=== PATIENT | male | born 1935 | race Caucasian/White ===

== ENCOUNTER 2017-11-20 09:00 | Outpatient (CLI) | payer MEDICARE ==
[2017-11-20 10:11] LABS: Hemoglobin 13.3 g/dL (14.0-18.0); Mean Corpuscular HGB CONC 33.5 g/dL (32.0-36.0); Mean Corpuscular Hemoglobin 31.7 pg (27.0-31.0); Mean Corpuscular Volume 94.6 fL (78.0-98.0); Mean Platelet Volume 6.7 fL (7.4-10.4); Platelet Count 245 thou/uL (130-400); RBC Distribution Width 12.2 % (11.5-14.5); Red Blood Cell (RBC) Count 4.19 mill/uL (4.70-6.10); White Blood Cell (WBC) Count 6.9 thou/uL (4.8-10.8)
[2017-11-20 10:17] LABS: PTT 30.9 SEC (22.9-36.1); Prothrombin Time 12.8 SEC (12.0-14.7)
[2017-11-20 10:23] LABS: Anion Gap 10 mmol/L (10-20); BUN (Urea Nitrogen) 27 mg/dL (8.4-25.7); Calc. Creatinine Clearance 0 mL/min (70-130); Calcium 9.2 mg/dL (7.8-10.44); Carbon Dioxide 26 mmol/L (23-31); Chloride 106 mmol/L (98-107); Estimated GFR-MDRD 72; Glucose 177 mg/dL (83-110); Potassium 4.3 mmol/L (3.5-5.1); Sodium 138 mmol/L (136-145)
--- NOTE | 2017-11-20 17:13 | EKG ---
Test Reason : Blood Pressure : / mmHG Vent. Rate : 057 BPM Atrial Rate : 057 BPM P-R Int : 214 ms QRS Dur : 126 ms QT Int : 438 ms P-R-T Axes : 027 117 027 degrees QTc Int : 426 ms Sinus bradycardia with sinus arrhythmia with 1st degree A-V block Right axis deviation Non-specific intra-ventricular conduction block cannot R/O anterior infarct Abnormal ECG Confirmed by DR. Daniel ABREU (3) on 11/20/2017 5:13:38 PM Referred By: KAMARI Confirmed By:DR. Daniel ABREU
== END 2017-11-20 09:01 | disposition home or self-care (01) ==
LOC: LABBT 09:00
PROVIDERS: ATTEND Urology
DX: Z01.818 Encounter for other preprocedural examination (principal); N35.9 Urethral stricture, unspecified
CPT/HCPCS: 80048; 85027; 85610; 85730; 93005; 93010

== ENCOUNTER 2017-11-23 06:56 | Day surgery (SDC) | payer MEDICARE ==
[2017-11-20 09:44] VITALS: BMI 26.4
[2017-11-23] MEDS ORDERED: CEFAZOLIN/Water 2 GM/20 ML SYRINGE ONE (07:24)
[2017-11-23] MEDS ORDERED: Fentanyl 100 MCG/2 ML VIAL ONE (10:02)
--- NOTE | 2017-11-23 13:29 | OP ---
DATE OF PROCEDURE: 11/23/2017 PREOPERATIVE DIAGNOSIS: Recurrent urethral stricture disease, status post urethroplasty in the dista nt past. PROCEDURE PERFORMED: Cystoscopy, urethral dilatation. SURGEON: Dr. Didier Davila. ANESTHETIC: General. ESTIMATED BLOOD LOSS: Not recorded. DRAINS PLACED: An 18-Tristanian Longview-tip catheter. FINDINGS: He had some diffuse strictures of his [place] urethra, both distal and proximal to the area of the urethroplasty. The urethroplasty was narrowed. The bladder was free of tumor, foreign body, or stone. There were 2 ureteral orifices in normal position. There was an enlarged prostate gland. OPERATIVE TECHNIQUE: Obtained written and verbal consent from the patient. After receiving IV antib iotics, he was taken to the operating suite. He was placed in a supine position on the treatment tab le. PlexiPulses placed on the lower extremities and turned on. He was given a general anesthetic, o ral obturator intubation. He was placed in dorsal lithotomy position, sterilely prepped and draped. Cystoscopy was performed with a 17-Tristanian sheath. It was passed down gently dilating some of the an nular strictures distal to the urethroplasty. Guidewire was then fed across this. When we brought i n the laser, we could not get the laser to work well to cut through this, so we just worked gently th rough with the 17-Tristanian sheath and then examined the bladder at 30- and 70-degrees lens. Then, we j ust went ahead with a 20-Tristanian and then 22-Tristanian by backloading the guidewire through each of the s ida. All of this done under direct vision. At this point, the guidewire was left in place and the Longview tip catheter was fed over it without difficulty into the bladder, 20 mL placed in the balloo n. His drain was hooked up to drainage bag and he was taken out of the dorsal lithotomy position, aw akened, extubated, and taken by stretcher to the recovery room.
[2017-11-23] MEDS ORDERED: Ondansetron HCl/PF 4 MG/2 ML Vial ONE (15:00)
[2017-11-23] MEDS ORDERED: Lidocaine 1% PF 5 ML VIAL ONE (15:00)
[2017-11-23] MEDS ORDERED: PROPOFOL 200 MG/20 ML VIAL ONE (15:00)
[2017-11-23] MEDS ORDERED: Dexamethasone 20 MG/5 ML VIAL ONE (15:00)
== END 2017-11-23 12:34 | disposition home or self-care (01) ==
LOC: SDC 06:56
PROVIDERS: ATTEND Urology
PROC: 0T7D8ZZ Dilation of Urethra, Via Natural or Artificial Opening Endoscopic (ICD-10-PCS; principal; 2017-11-23)
DX: N35.9 Urethral stricture, unspecified (principal); I25.10 Atherosclerotic heart disease of native coronary artery without angina pectoris; I10 Essential (primary) hypertension; E11.9 Type 2 diabetes mellitus without complications; Z79.4 Long term (current) use of insulin; Z79.899 Other long term (current) drug therapy
CPT/HCPCS: 52281; C1758; J1100; J2001; J2405; J2704; J3010

== ENCOUNTER 2018-10-28 01:42 | Outpatient (CLI) | payer MEDICARE ==
[2018-10-28 12:27] LABS: Hemoglobin 13.3 g/dL (14.0-18.0); Mean Corpuscular HGB CONC 32.5 g/dL (32.0-36.0); Mean Corpuscular Volume 95.7 fL (78.0-98.0); Mean Platelet Volume 6.7 fL (7.4-10.4); Platelet Count 239 thou/uL (130-400); White Blood Cell (WBC) Count 7.7 thou/uL (4.8-10.8)
[2018-10-28 12:37] LABS: PTT 35.4 SEC (22.9-36.1)
[2018-10-28 12:47] LABS: Anion Gap 9 mmol/L (10-20); BUN (Urea Nitrogen) 29 mg/dL (8.4-25.7); Calc. Creatinine Clearance 0 mL/min (70-130); Carbon Dioxide 28 mmol/L (23-31); Chloride 105 mmol/L (98-107); Estimated GFR-MDRD 60; Glucose 120 mg/dL (83-110); Potassium 4.8 mmol/L (3.5-5.1); Sodium 137 mmol/L (136-145)
== END 2018-10-28 01:43 | disposition home or self-care (01) ==
LOC: LABBT 01:42
PROVIDERS: ATTEND Surgery
DX: Z01.812 Encounter for preprocedural laboratory examination (principal); M48.061 Spinal stenosis, lumbar region without neurogenic claudication; M54.16 Radiculopathy, lumbar region
CPT/HCPCS: 80048; 85027; 85610; 85730

== ENCOUNTER 2018-11-04 06:09 | Day surgery (SDC) | payer MEDICARE ==
[2018-11-04] MEDS ORDERED: HYDROmorphone 2 MG/ML VIAL SLOW IVP PRN (10:49)
[2018-11-04] MEDS ORDERED: Promethazine HCl 25 MG/ML VIAL IM PRN (10:49)
[2018-11-04] MEDS ORDERED: PACU-Morphine 4MG/ML VIAL SLOW IVP PRN (10:49)
[2018-11-04] MEDS ORDERED: Meperidine HCl/PF 25 MG/ML VIAL SLOW IVP PRN (10:49)
[2018-11-04] MEDS ORDERED: Ondansetron HCl/PF 4 MG/2 ML Vial IVP PRN (10:49)
[2018-11-04] MEDS ORDERED: Promethazine HCl 25 MG/ML VIAL SLOW IVP PRN (10:49)
[2018-11-04] MEDS ORDERED: Morphine Sulfate 2 MG/ML SYRINGE SLOW IVP PRN (10:49)
[2018-11-04] MEDS ORDERED: Milk Of Magnesia 30 ML UDCUP PO PRN (11:41)
[2018-11-04] MEDS ORDERED: Fleet Enema 133 ML BOT PR PRN (11:41)
[2018-11-04] MEDS ORDERED: Bisacodyl 10 MG SUPP PR PRN (11:41)
[2018-11-04] MEDS ORDERED: Acetaminophen 325 MG TAB PO PRN (11:41)
[2018-11-04] MEDS ORDERED: traMADol HCl 50 MG TAB PO PRN (11:41)
[2018-11-04] MEDS ORDERED: Promethazine HCl 25 MG/ML VIAL IM/IV PRN (11:41)
[2018-11-04] MEDS ORDERED: Morphine 2 MG/ML SYRINGE SLOW IVP PRN (11:41)
[2018-11-04] MEDS ORDERED: Mag-Al 1200 mg/1200 mg/30 ML UDCUP PO PRN (11:41)
[2018-11-04] MEDS ORDERED: tiZANidine HCl 4 MG TAB PO PRN (11:44)
[2018-11-04] MEDS ORDERED: Fentanyl 100 MCG/2 ML VIAL ONE (11:51)
--- NOTE | 2018-11-04 12:41 | OP ---
DATE OF PROCEDURE: 11/04/2018 LOCATION: OR 11. BLOCKERS SKIVER: Mor. PREPROCEDURE DIAGNOSES: Multilevel lumbar stenosis with low back and leg pain, and history of prior lumbar surgery. POSTPROCEDURE DIAGNOSES: Multilevel lumbar stenosis with low back and leg pain, and history of prior lumbar surgery. PROCEDURES PERFORMED: 1. L2-L3, L3-L4 laminectomies, partial facetectomies, foraminotomies over the L2, L3, L4 nerve roots. 2. Bilateral revision hemilaminotomies, L4-L5, L5-S1 for decompression of the L4-L5, L5-S1 nerve roots and cauda equina. DESCRIPTION OF PROCEDURE: After informed consent was obtained from the patient, the patient was brought to the OR. Proper patient, pause, and identification were carried out. He was placed under excellent general endotracheal anesthesia and positioned prone on the OR table. All appropriate points were padded. I identified the L2, L3, L4, L5, and S1 dorsal spines and lamina. A linear jorge was made over this area, and this region was sterilely cleansed, prepared, and draped. Proper patient, pause, and identification were carried out. The wound was then opened with a combination of sharp, monopolar, and blunt dissection. The L2, L3, L4, L5, and S1 dorsal spines and lamina were removed along with bilateral revision of L4-L5 and L5-S1 hemilaminotomies and decompressions. A modifier 50 should be added to this surgery as this was a bilateral surgery. With excellent decompression of the common dural tube and the L2 through S1 nerve roots and the thecal sac, there was no spinal fluid leak. Copious irrigation occurred throughout. Hemostasis was a bit challenging at times as the patient had remained on his aspirin for cardiac protection. However, copious irrigation and maximization of hemostasis were performed. The wound was then closed in anatomic layers following sprinkling of vancomycin powder. The patient emerged from anesthesia. Job ID: [id number]
[2018-11-04] MEDS: HYDROcodone/Acetaminophen 10/325 mg Tablet PO PRN ×2 (13:31→21:28)
[2018-11-04] MEDS: Sodium Chloride 0.9% 1,000 ML IV SCH ×2 (13:45→15:00)
[2018-11-04 13:57] VITALS: BMI 26.4
[2018-11-04] MEDS: CEFAZOLIN 2 GM in Premix Bag 1 BAG IVPB SCH ×2 (15:02→23:40)
[2018-11-04] MEDS: Gabapentin 300 MG CAP PO SCH ×2 (15:02→21:23)
[2018-11-04] MEDS: Acetaminophen/Codeine 30-300mg Tablet PO PRN ×2 (15:43→18:45)
[2018-11-04] MEDS ORDERED: PROPOFOL 200 MG/20 ML VIAL ONE (16:25)
[2018-11-04] MEDS ORDERED: PHENYLEPHRINE-NS 100 MCG/ML 10 ML SYRINGE ONE (16:26)
[2018-11-04] MEDS ORDERED: ePHEDrine 50 MG/ML VIAL ONE (16:26)
[2018-11-04] MEDS ORDERED: Lidocaine 1% PF 5 ML VIAL ONE (16:26)
[2018-11-04] MEDS ORDERED: Metoclopramide HCl 10 MG/2 ML VIAL ONE (16:26)
[2018-11-04] MEDS ORDERED: Ondansetron PF 4 MG/2 ML Vial ONE (16:26)
[2018-11-04] MEDS ORDERED: Rocuronium Bromide 10 MG/ML (10ML VIAL) ONE (16:26)
[2018-11-04] MEDS ORDERED: Glycopyrrolate 0.2 MG/ML 5 ML SYRINGE ONE (16:26)
[2018-11-04] MEDS ORDERED: HumaLOG 300 UNITS/3 ML VIAL SC PRN (18:08)
[2018-11-04] MEDS ORDERED: Dextrose 5% in Water 1,000 ML IV PRN (18:08)
[2018-11-04] MEDS ORDERED: Dextrose 50% Abboject 50 ML SYRINGE SLOW IVP PRN (18:08)
[2018-11-04] MEDS ORDERED: cloNIDine 0.1 MG TAB PO PRN (18:22)
[2018-11-04] MEDS ORDERED: Acetaminophen 500 MG TAB PO PRN (18:22)
[2018-11-04] MEDS ORDERED: Sodium Chloride 0.65% Nasal 44 ML BOT EA NARE PRN (18:22)
[2018-11-04] MEDS ORDERED: Ondansetron PF 4 MG/2 ML Vial IVP PRN (18:22)
[2018-11-04] MEDS ORDERED: Benzonatate 100 MG CAP PO PRN (18:22)
[2018-11-04] MEDS ORDERED: Senokot S 8.6-50 MG TAB PO PRN (18:22)
[2018-11-04] MEDS ORDERED: Diabetic Tussin 200 MG/10 ML UDCUP PO PRN (18:22)
[2018-11-04] MEDS ORDERED: hydrALAZINE 20 MG/ML VIAL SLOW IVP PRN (18:22)
[2018-11-04] MEDS ORDERED: Loratadine 10 MG TAB PO PRN (18:22)
[2018-11-04] MEDS ORDERED: Calcium Carbonate 500 MG ChewTAB PO PRN (18:22)
--- NOTE | 2018-11-04 18:22 | PDOC.PN ---
- Subjective Encounter Start Date: 11/04/18 Encounter Start Time: 18:22 Subjective: S/P Lumbosacral laminectomy by NS. -: IM team consulted for medical Mm of HTN,DM2 - Objective MAR Reviewed: Yes Vital Signs & Weight: Vital Signs (12 hours) Temp Pulse Resp BP Pulse Ox 11/04/18 15:15 98.1 F 50 L 18 117/53 L 96 11/04/18 13:10 97.8 F 52 L 18 134/58 L 96 Weight Weight 190 lb I&O: 11/03/18 11/04/18 11/05/18 06:59 06:59 06:59 Intake Total 1400 Balance 1400 Additional Labs: Accuchecks 11/04/18 17:46 POC Glucose 179 H Phys Exam - Physical Examination Constitutional: NAD HEENT: PERRLA, moist MMs, sclera anicteric, oral pharynx no lesions Neck: no nodes, no JVD, supple, full ROM Respiratory: no wheezing, no rales, no rhonchi, clear to auscultation bilateral Cardiovascular: RRR, no significant murmur Gastrointestinal: soft, non-tender, no distention, positive bowel sounds Musculoskeletal: no edema, pulses present Neurological: non-focal, normal sensation, moves all 4 limbs Psychiatric: normal affect, A&O x 3 Skin: no rash Dx/Plan (1) DM2 (diabetes mellitus, type 2) Status: Chronic Comment: cont lantus.Add ISS w accuchecks ACHS. (2) HTN (hypertension) Code(s): I10 - ESSENTIAL (PRIMARY) HYPERTENSION Status: Chronic Comment: controlled. cont home dose of Lisinopril.BP on lower side.Monitor Add prn antihypertensives (3) CAD (coronary artery disease) Code(s): I25.10 - ATHSCL HEART DISEASE OF [place] CORONARY ARTERY W/O ANG PCTRS Status: Chronic Comment: stable. Cont lipitor,MIMI-I.no ASA due to spinal Sx today (4) BPH (benign prostatic hyperplasia) Code(s): N40.0 - BENIGN PROSTATIC HYPERPLASIA WITHOUT LOWER URINRY TRACT SYMP Status: Chronic Comment: cont proscar. No new symptoms (5) S/P laminectomy Code(s): Z98.890 - OTHER SPECIFIED POSTPROCEDURAL STATES Status: Acute Comment: As per primary team - Plan PT/OT, DVT proph w/SCDs SCDs -: AM labs -: HD stable -: IM team will follow. cont symptomatic & supportive care * . Review of Systems - Review of Systems Constitutional: negative: fever, chills, sweats, weakness, malaise, other ENT: negative: Ear Pain, Ear Discharge, Nose Pain, Nose Discharge, Nose Congestion, Mouth Pain, Mouth Swelling, Throat Pain, Throat Swelling, Other Respiratory: negative: Cough, Dry, Shortness of Breath, Hemoptysis, SOB with Excertion, Pleuritic Pain, Sputum, Wheezing Cardiovascular: negative: chest pain, palpitations, orthopnea, paroxysmal nocturnal dyspnea, edema, light headedness, other Gastrointestinal: negative: Nausea, Vomiting, Abdominal Pain, Diarrhea, Constipation, Melena, Hematochezia, Other Genitourinary: negative: Dysuria, Frequency, Incontinence, Hematuria, Retention , Other Musculoskeletal: negative: Neck Pain, Shoulder Pain, Arm Pain, Back Pain, Hand Pain, Leg Pain, Foot Pain, Other Neurological: negative: Weakness, Numbness, Incoordination, Change in Speech, Confusion, Seizures, Other - Medications/Allergies Allergies/Adverse Reactions: Allergies Allergy/AdvReac Type Severity Reaction Status Date / Time No Known Allergies Allergy Verified 11/04/18 13:57 Medications: Current Medications Acetaminophen (Tylenol) 650 mg PO Q4H PRN PRN Reason: Headache/Fever or Pain Acetaminophen/Codeine Phosphate (Tylenol #3) 1 tab PO Q3H PRN PRN Reason: Mild Pain (1-3) Last Admin: 11/04/18 15:43 Dose: 1 tab Hydrocodone Bitart/Acetaminophen ([place]ler 10/325) 1 tab PO Q8H PRN PRN Reason: Moderate Pain (4-6) Last Admin: 11/04/18 13:31 Dose: 1 tab Al Hydroxide/Mg Hydroxide (Maalox) 30 ml PO Q4H PRN PRN Reason: Indigestion Atorvastatin Calcium (Lipitor) 40 mg PO HS ZOILA Bisacodyl (Dulcolax) 10 mg WA Q12H PRN PRN Reason: Constipation Dextrose/Water (Dextrose 50%) 25 gm SLOW IVP PRN PRN PRN Reason: Hypoglycemia Finasteride (Proscar) 5 mg PO QAM ZOILA Gabapentin (Neurontin) 600 mg PO Q8HR ZOILA Last Admin: 11/04/18 15:02 Dose: 600 mg Glucagon (Glucagon) 1 mg IM PRN PRN PRN Reason: Hypoglycemia Cefazolin Sodium/Dextrose 2 gm (/ Device) 50 mls @ 100 mls/hr IVPB 0800,1600, 2359 [facility] Stop: 11/05/18 00:28 Last Admin: 11/04/18 15:02 Dose: 50 mls Sodium Chloride (Normal Saline 0.9%) 1,000 mls @ 50 mls/hr IV .Q20H [facility] Last Admin: 11/04/18 15:00 Dose: 1,000 mls Insulin Glargine 15 units/ (Miscellaneous Medication) 0.15 mls @ 0 mls/hr SC QAM ZOILA Insulin Glargine 25 units/ (Miscellaneous Medication) 0.25 mls @ 0 mls/hr SC HS [facility] Dextrose/Water (D5w) 1,000 mls @ 0 mls/hr IV .Q0M PRN PRN Reason: Hypoglycemia Insulin Human Lispro (Humalog) 0 units SC .MODERATE SLIDING SC PRN PRN Reason: Moderate Correctional Scale Insulin Human Lispro (Humalog) 0 units SC .BEDTIME SLIDING SC PRN PRN Reason: Bedtime Correctional Scale Lactulose (Lactulose) [id number] gm PO DAILY [facility] Lisinopril (Zestril) 5 mg PO HS [facility] Magnesium Hydroxide (Milk Of Magnesium) 30 ml PO Q12H PRN PRN Reason: Constipation Morphine Sulfate (Morphine) 2 mg SLOW IVP Q1H PRN PRN Reason: Severe Pain (7-10) Promethazine HCl (Phenergan) 12.5 mg IM/IV Q4H PRN PRN Reason: Nausea/Vomiting Sodium Biphosphate/Sodium Phosphate (Fleet Enema) 133 ml WA ONE PRN PRN Reason: Constipation Stop: 11/04/18 23:00 Sodium Chloride (Flush - Normal Saline) 10 ml IVF PRN PRN PRN Reason: Saline Flush Tizanidine HCl (Zanaflex) 4 mg PO Q8H PRN PRN Reason: Muscle Spasm Tramadol HCl (Ultram) 50 mg PO Q6H PRN PRN Reason: Mild Pain (1-3)
[2018-11-04] MEDS: HumaLOG 300 UNITS/3 ML VIAL SC PRN (18:41)
[2018-11-04] MEDS ORDERED: Insulin Glargine 25 UNITS in Pre-Filled Syringe 1 EACH SC SCH (21:00)
[2018-11-04] MEDS ORDERED: Non-Formulary Item 1 EACH (Insulin Detemir 100 Units/Ml [Levemir] 25 UNIT) SQ SCH (21:00)
[2018-11-04] MEDS ORDERED: Atorvastatin Calcium 40 MG TAB PO SCH (21:00)
[2018-11-04] MEDS ORDERED: Lisinopril 5 MG TAB PO SCH (21:00)
[2018-11-04] MEDS ORDERED: Insulin Glargine 20 UNITS in Pre-Filled Syringe 1 EACH SC SCH (22:15)
[2018-11-04] MEDS ORDERED: HYDROcodone/Acetaminophen 5/325 mg Tablet PO SCH (22:30)
[2018-11-05 04:43] LABS: #Basophils 0.1 thou/uL (0.0-0.2); #Eosinphils 0.1 thou/uL (0.0-0.7); #Lymphocytes 2.2 thou/uL (1.20-3.40); #Monocytes 0.9 thou/uL (0.11-0.59); #Neutrophils 6.4 thou/uL (1.40-6.50); %Basophils 0.6 % (0.0-1.0); %Eosinophils 0.6 % (0.0-10.0); %Monocytes 9.2 % (0.0-10.0); %Neutrophils 66.5 % (42.0-75.0); Hemoglobin 10.4 g/dL (14.0-18.0); Mean Corpuscular Hemoglobin 31.7 pg (27.0-31.0); Mean Corpuscular Volume 96.2 fL (78.0-98.0); Platelet Count 216 thou/uL (130-400); RBC Distribution Width 11.7 % (11.5-14.5); Red Blood Cell (RBC) Count 3.29 mill/uL (4.70-6.10); White Blood Cell (WBC) Count 9.6 thou/uL (4.8-10.8)
[2018-11-05 05:08] LABS: Anion Gap 11 mmol/L (10-20); BUN (Urea Nitrogen) 29 mg/dL (8.4-25.7); Calc. Creatinine Clearance 59 mL/min (70-130); Calcium 8.9 mg/dL (7.8-10.44); Carbon Dioxide 28 mmol/L (23-31); Chloride 101 mmol/L (98-107); Estimated GFR-MDRD 61; Glucose 317 mg/dL (83-110); Potassium 4.5 mmol/L (3.5-5.1); Sodium 135 mmol/L (136-145)
[2018-11-05] MEDS: HYDROcodone/Acetaminophen 10/325 mg Tablet PO PRN (05:18)
[2018-11-05] MEDS: Gabapentin 300 MG CAP PO SCH (05:18)
[2018-11-05] MEDS: HumaLOG 300 UNITS/3 ML VIAL SC PRN (06:32)
[2018-11-05 08:13] VITALS: BP 132/66; TEMP 98.2
[2018-11-05] MEDS ORDERED: Non-Formulary Item 1 EACH (Insulin Detemir 100 Units/Ml [Levemir] 15 UNITS) SQ SCH (09:00)
[2018-11-05] MEDS ORDERED: Insulin Glargine 15 UNITS in Pre-Filled Syringe 1 EACH SC SCH (09:00)
[2018-11-05] MEDS ORDERED: Finasteride 5 MG TAB PO SCH (09:00)
--- NOTE | 2018-11-05 09:28 | DIS ---
DATE OF ADMISSION: 11/04/2018 DATE OF DISCHARGE: 11/05/2018 The patient is an 83-year-old male, status post L2 to L4 laminectomies and bilateral revision of hemilaminotomies, foraminotomies, L4 to S1. He is postoperative day #1. Following the surgery, he was transitioned to the Med/Surg floor, where his pain has been well-controlled with p.o. medications, he has been tolerating a regular diet, and he has been voiding appropriately. He reports he has been up ambulating without any difficulty. On exam this morning, he is awake, alert, in no acute distress. He has free active range of motion of all extremities. No focal motor weakness. His dressing is dry and intact. We will plan to dismiss the patient to home. I have discussed home care and precautions. I have provided him with scripts for Rattan and Zanaflex. Job ID: [id number]
[2018-11-05] MEDS ORDERED: Insulin Glargine 20 UNITS in Pre-Filled Syringe 1 EACH SC SCH (21:00)
== END 2018-11-05 09:00 | disposition home or self-care (01) ==
LOC: SDC 06:09 → SURG A 13:13 → SDC 11-05 09:00
PROVIDERS: ATTEND Surgery
PROC: 01NB0ZZ Release Lumbar Nerve, Open Approach (ICD-10-PCS; principal; 2018-11-04)
DX: M48.062 Spinal stenosis, lumbar region with neurogenic claudication (principal); M54.16 Radiculopathy, lumbar region; E11.9 Type 2 diabetes mellitus without complications; I10 Essential (primary) hypertension; I25.10 Atherosclerotic heart disease of native coronary artery without angina pectoris; N40.0 Benign prostatic hyperplasia without lower urinary tract symptoms; Z79.4 Long term (current) use of insulin; Z79.82 Long term (current) use of aspirin; Z79.899 Other long term (current) drug therapy; Z98.890 Other specified postprocedural states
CPT/HCPCS: 36415; 36416; 76000; 80048; 85025; J0690; J1815; J2001; J2405; J2704; J2765; J3010; J3490

== ENCOUNTER 2021-07-10 17:21 | Inpatient (IN) | payer MEDICARE ==
[2021-07-10] MEDS ORDERED: DOBUTamine 500 mg/250 ml 250 ML ONE (17:44)
[2021-07-10 18:07] LABS: #Basophils 0.1 thou/uL (0.0-0.2); #Eosinphils 0.1 thou/uL (0.0-0.7); #Lymphocytes 1.4 thou/uL (1.20-3.40); #Monocytes 0.7 thou/uL (0.11-0.59); #Neutrophils 9.6 thou/uL (1.40-6.50); %Basophils 0.5 % (0.0-1.0); %Eosinophils 0.6 % (0.0-10.0); %Monocytes 6.1 % (0.0-10.0); %Neutrophils 80.8 % (42.0-75.0); Hemoglobin 9.4 g/dL (14.0-18.0); Mean Corpuscular HGB CONC 32.8 g/dL (32.0-36.0); Mean Corpuscular Hemoglobin 31.1 pg (27.0-31.0); Mean Corpuscular Volume 94.9 fL (78.0-98.0); Mean Platelet Volume 6.2 fL (7.4-10.4); Platelet Count 281 thou/uL (130-400); RBC Distribution Width 11.8 % (11.5-14.5); Red Blood Cell (RBC) Count 3.01 mill/uL (4.70-6.10); White Blood Cell (WBC) Count 11.8 thou/uL (4.8-10.8)
[2021-07-10] MEDS ORDERED: Lidocaine 1% (PF) 30 ML VIAL ONE (18:27)
[2021-07-10 18:28] LABS: ALT (SGPT) 18 U/L (8-55); AST (SGOT) 23 U/L (5-34); Albumin 3.9 g/dL (3.4-4.8); Alkaline Phosphatase 92 U/L (40-110); Anion Gap 16 mmol/L (10-20); BUN (Urea Nitrogen) 36 mg/dL (8.4-25.7); Bilirubin, Total 0.8 mg/dL (0.2-1.2); Calc. Creatinine Clearance 0 mL/min (70-130); Calcium 8.6 mg/dL (7.8-10.44); Carbon Dioxide 18 mmol/L (23-31); Chloride 111 mmol/L (98-107); Globulin 2.7 g/dL (2.4-3.5); Glucose 127 mg/dL (83-110); Potassium 4.5 mmol/L (3.5-5.1); Protein, Total 6.6 g/dL (5.8-8.1); Sodium 140 mmol/L (136-145)
[2021-07-10] MEDS ORDERED: Fentanyl 250 MCG/5 ML VIAL ONE (18:53)
[2021-07-10] MEDS ORDERED: Midazolam HCl 2 mg/2 ml Vial ONE (18:53)
[2021-07-10 18:54] LABS: CKMB 3.7 ng/mL (0-6.6)
[2021-07-10 19:05] LABS: SARS-CoV-2 NAA Rapid Test Not Detected (NotDetected)
[2021-07-10 21:04] VITALS: BMI 29.5
[2021-07-10] MEDS ORDERED: Dextrose 50% Abboject 50 ML SYRINGE SLOW IVP PRN (21:04)
[2021-07-10] MEDS ORDERED: Dextrose 5% in Water 1,000 ML IV PRN (21:04)
[2021-07-10] MEDS ORDERED: HumaLOG 300 UNITS/3 ML VIAL SC PRN (21:04)
[2021-07-10] MEDS ORDERED: Finasteride 5 MG TAB PO SCH (21:45)
[2021-07-10] MEDS ORDERED: Gabapentin 300 MG CAP PO SCH (21:45)
[2021-07-10] MEDS: Lisinopril 5 MG TAB PO SCH (22:26)
[2021-07-10] MEDS: Atorvastatin Calcium 40 MG TAB PO SCH (22:26)
[2021-07-10] MEDS: HYDROcodone/Acetaminophen 10/325 mg Tablet PO PRN (22:27)
[2021-07-11] MEDS: HYDROcodone/Acetaminophen 10/325 mg Tablet PO PRN ×3 (05:57→21:09)
[2021-07-11] MEDS ORDERED: Sodium Chloride 0.9% 1,000 ML IV SCH (06:00)
[2021-07-11] MEDS: HumaLOG 300 UNITS/3 ML VIAL SC PRN ×2 (06:15→16:03)
[2021-07-11] MEDS: Aspirin 81 mg Enteric Coated Tablet PO SCH (09:15)
[2021-07-11 10:58] LABS: Bilirubin Negative (Negative); Blood, Urine Negative (Negative); Clarity Clear (Clear); Glucose, Urine (Dipstick) Normal (Negative); Ketone, Urine Negative (Negative); Leukocyte Negative Leu/uL (Negative); Nitrite Negative (Negative); Protein, Urine (Dipstick) 20 mg/dL (Neg-Trace); Specific Gravity, Urine 1.019 (1.002-1.036); Urobilinogen Normal mg/dL (Less than 2); pH, Urine 5.5 (5.0-9.0)
[2021-07-11] MEDS: Sodium Chloride 0.9% 1,000 ML IV SCH ×2 (11:04→21:20)
[2021-07-11] MEDS ORDERED: HYDROcodone/Acetaminophen 10/325 mg Tablet PO SCH (11:30)
[2021-07-11] MEDS ORDERED: HYDROcodone/Acetaminophen 10/325 mg Tablet PO PRN (11:43)
[2021-07-11] MEDS: Gabapentin 400 MG CAP PO SCH ×2 (14:00→21:08)
[2021-07-11] MEDS ORDERED: CEFAZOLIN 2 GM, Admixture Fee 1 EACH in Sodium Chloride 0.9% 100 ML IVPB SCH (19:00)
[2021-07-11] MEDS: Finasteride 5 MG TAB PO SCH (21:07)
[2021-07-11] MEDS: Lisinopril 5 MG TAB PO SCH (21:07)
[2021-07-11] MEDS: Atorvastatin Calcium 40 MG TAB PO SCH (21:07)
[2021-07-12 06:03] LABS: #Eosinphils 0.2 thou/uL (0.0-0.7); #Lymphocytes 2.8 thou/uL (1.20-3.40); #Monocytes 0.8 thou/uL (0.11-0.59); #Neutrophils 5.4 thou/uL (1.40-6.50); %Basophils 0.3 % (0.0-1.0); %Eosinophils 1.9 % (0.0-10.0); %Lymphocytes 30.4 % (21.0-51.0); %Monocytes 8.6 % (0.0-10.0); %Neutrophils 58.8 % (42.0-75.0); Hemoglobin 9.9 g/dL (14.0-18.0); Mean Corpuscular HGB CONC 33.3 g/dL (32.0-36.0); Mean Corpuscular Hemoglobin 31.7 pg (27.0-31.0); Mean Corpuscular Volume 95.4 fL (78.0-98.0); Mean Platelet Volume 6.2 fL (7.4-10.4); Platelet Count 261 thou/uL (130-400); RBC Distribution Width 12.1 % (11.5-14.5); Red Blood Cell (RBC) Count 3.12 mill/uL (4.70-6.10); White Blood Cell (WBC) Count 9.3 thou/uL (4.8-10.8)
[2021-07-12] MEDS: HumaLOG 300 UNITS/3 ML VIAL SC PRN ×2 (06:05→17:17)
[2021-07-12] MEDS: Gabapentin 400 MG CAP PO SCH ×3 (06:06→22:04)
[2021-07-12] MEDS: HYDROcodone/Acetaminophen 10/325 mg Tablet PO PRN ×3 (06:07→22:04)
[2021-07-12 06:23] LABS: Anion Gap 11 mmol/L (10-20); BUN (Urea Nitrogen) 33 mg/dL (8.4-25.7); Calc. Creatinine Clearance 56 mL/min (70-130); Calcium 8.2 mg/dL (7.8-10.44); Carbon Dioxide 20 mmol/L (23-31); Chloride 111 mmol/L (98-107); Glucose 249 mg/dL (83-110); Potassium 4.3 mmol/L (3.5-5.1); Sodium 138 mmol/L (136-145)
[2021-07-12] MEDS: Aspirin 81 mg Enteric Coated Tablet PO SCH (08:57)
[2021-07-12] MEDS ORDERED: CEFAZOLIN 1 GM VIAL ONE (10:05)
[2021-07-12] MEDS ORDERED: Lidocaine 1% (PF) 30 ML VIAL ONE ×2 (10:05→12:19)
[2021-07-12] MEDS ORDERED: Gentamicin 80 MG/2 ML VIAL ONE (10:05)
[2021-07-12] MEDS ORDERED: ceFAZolin 2 GM/DEX 5% 100 ML BAG ONE (10:05)
[2021-07-12] MEDS ORDERED: Iopamidol 370 76% 50 ML VIAL FS ONE (10:10)
[2021-07-12] MEDS ORDERED: Fentanyl 250 MCG/5 ML VIAL ONE ×2 (10:39→13:53)
[2021-07-12] MEDS ORDERED: Ondansetron PF 4 MG/2 ML Vial ONE (11:21)
[2021-07-12] MEDS ORDERED: PROPOFOL 200 MG/20 ML VIAL ONE (11:21)
[2021-07-12] MEDS ORDERED: ePHEDrine 50 MG/ML VIAL ONE (11:21)
[2021-07-12] MEDS ORDERED: Lidocaine 1% PF 5 ML VIAL ONE (11:21)
[2021-07-12] MEDS ORDERED: PROPOFOL 20 ML ONE (12:39)
[2021-07-12] MEDS ORDERED: Acetaminophen/Codeine 30-300mg Tablet PO PRN ×2 (14:30)
[2021-07-12] MEDS: Cephalexin 250 MG CAP PO SCH ×2 (15:32→20:53)
[2021-07-12 20:53] VITALS: BP 163/75
[2021-07-12] MEDS: Lisinopril 5 MG TAB PO SCH (20:53)
[2021-07-12] MEDS: Atorvastatin Calcium 40 MG TAB PO SCH (20:53)
[2021-07-12] MEDS: Finasteride 5 MG TAB PO SCH (20:53)
[2021-07-13] MEDS: Sodium Chloride 0.9% 1,000 ML IV SCH (03:31)
[2021-07-13] MEDS: HYDROcodone/Acetaminophen 10/325 mg Tablet PO PRN (06:07)
[2021-07-13] MEDS: Gabapentin 400 MG CAP PO SCH ×2 (06:08→14:12)
[2021-07-13] MEDS: HumaLOG 300 UNITS/3 ML VIAL SC PRN ×2 (06:09→11:45)
[2021-07-13] MEDS ORDERED: Electrolyte Replacement Protocol 1 EACH FS PRN (08:00)
[2021-07-13] MEDS: Aspirin 81 mg Enteric Coated Tablet PO SCH (08:30)
[2021-07-13] MEDS: Cephalexin 250 MG CAP PO SCH (08:30)
[2021-07-13 09:48] LABS: Anion Gap 10 mmol/L (10-20); BUN (Urea Nitrogen) 28 mg/dL (8.4-25.7); Calc. Creatinine Clearance 58 mL/min (70-130); Calcium 8.3 mg/dL (7.8-10.44); Carbon Dioxide 22 mmol/L (23-31); Chloride 110 mmol/L (98-107); Glucose 189 mg/dL (83-110); Magnesium 2.1 mg/dL (1.6-2.6); Potassium 4.1 mmol/L (3.5-5.1); Sodium 138 mmol/L (136-145)
[2021-07-13 12:13] VITALS: TEMP 97.9
[2021-07-13] MEDS ORDERED: Lisinopril 5 MG TAB PO SCH (21:00)
== END 2021-07-13 14:24 | disposition home or self-care (01) | DRG 243 ==
LOC: ERS 17:21 → CCL 18:40 → CCU 19:03
PROVIDERS: ADMIT Internal Medicine Cardiovascular Disease; ATTEND Internal Medicine Cardiovascular Disease
PROC: 5A1223Z Performance of Cardiac Pacing, Continuous (ICD-10-PCS; principal; 2021-07-10)
PROC: 02HK3JZ Insertion of Pacemaker Lead into Right Ventricle, Percutaneous Approach (ICD-10-PCS; 2021-07-10)
PROC: 02HK3JZ Insertion of Pacemaker Lead into Right Ventricle, Percutaneous Approach (ICD-10-PCS; 2021-07-12)
PROC: 0JH607Z Insertion of Cardiac Resynchronization Pacemaker Pulse Generator into Chest Subcutaneous Tissue and Fascia, Open Approach (ICD-10-PCS; 2021-07-12)
PROC: 02HL3JZ Insertion of Pacemaker Lead into Left Ventricle, Percutaneous Approach (ICD-10-PCS; 2021-07-12)
PROC: 02H63JZ Insertion of Pacemaker Lead into Right Atrium, Percutaneous Approach (ICD-10-PCS; 2021-07-12)
DX: I44.2 Atrioventricular block, complete (principal); N17.9 Acute kidney failure, unspecified; I50.22 Chronic systolic (congestive) heart failure; N39.0 Urinary tract infection, site not specified; I13.0 Hypertensive heart and chronic kidney disease with heart failure and stage 1 through stage 4 chronic kidney disease, or unspecified chronic kidney disease; F32.A Depression, unspecified; E78.00 Pure hypercholesterolemia, unspecified; E78.5 Hyperlipidemia, unspecified; N35.919 Unspecified urethral stricture, male, unspecified site; E11.42 Type 2 diabetes mellitus with diabetic polyneuropathy; N40.0 Benign prostatic hyperplasia without lower urinary tract symptoms; I25.10 Atherosclerotic heart disease of native coronary artery without angina pectoris; D63.1 Anemia in chronic kidney disease; N18.30 Chronic kidney disease, stage 3 unspecified; E11.22 Type 2 diabetes mellitus with diabetic chronic kidney disease; B95.4 Other streptococcus as the cause of diseases classified elsewhere; Z20.822 Contact with and (suspected) exposure to COVID-19; Z95.1 Presence of aortocoronary bypass graft
CPT/HCPCS: 33208; 33210; 33225; 36415; 36416; 71045; 80048; 80053; 81003; 82553; 83735; 83880; 84484; 85025; 87077; 87086; 93005; 93010; 93306; 96365; 99153; C1898; C1900; C2621; J0690; J1250; J1580; J1815; J2001; J2250; J2405; J2704; J3010; J3490; J7050; Q9967; U0002

== ENCOUNTER 2023-03-11 10:53 | Outpatient (CLI) | payer MEDICARE ==
[2023-03-11 12:22] LABS: Hematocrit 33.9 % (38.8-50.0); Hemoglobin 10.6 g/dL (13.5-17.5); Mean Corpuscular HGB CONC 31.3 g/dL (32.0-36.0); Mean Corpuscular Hemoglobin 29.9 pg (27.0-33.0); Mean Corpuscular Volume 95.5 fl (81.2-95.1); Platelet Count 280 10x3/uL (150-450); RBC Distribution Width 13.4 % (11.5-14.5); Red Blood Cell (RBC) Count 3.55 10x6/uL (4.32-5.72); White Blood Cell (WBC) Count 8.9 10x3/uL (3.5-10.5)
[2023-03-11 12:27] LABS: PTT 28.2 sec (22.0-33.0); Prothrombin Time 10.6 sec (9.5-12.1)
[2023-03-11 12:39] LABS: Anion Gap 16 mmol/L (10-20); BUN (Urea Nitrogen) 37 mg/dL (8.4-25.7); Calc. Creatinine Clearance 0 mL/min (70-130); Calcium 8.3 mg/dL (7.8-10.44); Carbon Dioxide 19 mmol/L (23-31); Chloride 110 mmol/L (98-107); Estimated GFR 46; Glucose 184 mg/dL (83-110); Sodium 140 mmol/L (136-145)
== END 2023-03-11 10:54 | disposition home or self-care (01) ==
LOC: LABBT 10:53
PROVIDERS: ATTEND Urology
DX: Z01.818 Encounter for other preprocedural examination (principal); N35.919 Unspecified urethral stricture, male, unspecified site
CPT/HCPCS: 80048; 85027; 85610; 85730; 87086; 93005; 93010

== ENCOUNTER 2023-03-17 08:42 | Day surgery (SDC) | payer MEDICARE ==
[2023-03-11 11:38] VITALS: BMI 30.1
[2023-03-17] MEDS ORDERED: Iopamidol 0 ML ONE (11:02)
[2023-03-17] MEDS ORDERED: fentaNYL 50 mcg/mL 1 mL Vial ONE ×2 (11:15→12:53)
[2023-03-17] MEDS ORDERED: CEFAZOLIN 2 GM VIAL ONE (11:22)
[2023-03-17] MEDS ORDERED: Sodium Chloride 0.9% 100 ML ONE (11:22)
[2023-03-17] MEDS ORDERED: SUGAMMADEX SODIUM 200 MG/2 ML VIAL ONE (12:21)
== END 2023-03-17 14:25 | disposition home or self-care (01) ==
LOC: SDC 08:42
PROVIDERS: ATTEND Urology
PROC: 0T7D8ZZ Dilation of Urethra, Via Natural or Artificial Opening Endoscopic (ICD-10-PCS; principal; 2023-03-17)
DX: N99.111 Postprocedural bulbous urethral stricture, male (principal)
CPT/HCPCS: 52276; 82962; J3010; 36416; J3490; Q9967